=== PATIENT | male | born 2000 | race Caucasian/White ===

== ENCOUNTER 2021-12-19 11:54 | Emergency (ER) | payer MEDICAID, OTHER ==
[2021-12-19] MEDS ORDERED: Dexamethasone 10 MG/ML SDV IM STA (12:01)
[2021-12-19 12:15] VITALS: BP 137/77; PULSE 88
== END 2021-12-19 12:12 | disposition home or self-care (01) ==
LOC: MW.ED 11:54
DX: J02.9 Acute pharyngitis, unspecified (principal)
CPT/HCPCS: 96372; 99283; J1100

== ENCOUNTER 2022-12-05 15:03 | Emergency (ER) | payer MEDICAID | END 2022-12-05 15:09 | disposition left against medical advice (07) | LOC: MW.ED 15:03 | DX: Z53.21 Procedure and treatment not carried out due to patient leaving prior to being seen by health care provider (principal) ==